=== PATIENT | female | born 1940 | race Caucasian/White ===

== ENCOUNTER 2017-02-20 15:27 | Outpatient (CLI) | payer MEDICARE, OTHER ==
--- NOTE | 2017-02-20 17:49 | Ultrasound Report ---
EXAM: CAROTID DOPPLER ULTRASOUND EXAM DATE: 02/20/2017 04:31 PM. CLINICAL HISTORY: Carotid artery stenosis. COMPARISON: Report dated 05/02/2015. TECHNIQUE: Real-time sonographic vascular imaging was performed by the ski maker wood through the caroti d arterial system with a linear transducer utilizing color-flow, Doppler flow and spectral analysis. Multiple fundraising sale representative static images were saved for review. FINDINGS: Mild heterogeneous plaque formation on the right. Marked heterogeneous plaque formation at the origin of the left ICA with near occlusion of the proximal left ICA. Right: RCCA Prox: PSV 87 cm/sec. RCCA Dist: PSV 81 cm/sec, EDV 20 cm/sec. RECA: PSV 77 cm/sec. R Bulb: PSV 69 cm/sec, EDV 20 cm/sec, ICA/CCA ratio 0.85, degree of stenosis <50%, plaque estimate <5 0%. DOUGLAS Prox: PSV 68 cm/sec, EDV 19 cm/sec, ICA/CCA ratio 0.84, degree of stenosis <50%, plaque estimate <50%. DOUGLAS Mid: PSV 77 cm/sec, EDV 22 cm/sec, ICA/CCA ratio 0.95, degree of stenosis <50%, plaque estimate <50%. DOUGLAS Dist: PSV 107 cm/sec, EDV 35 cm/sec, ICA/CCA ratio 1.32, degree of stenosis <50%, plaque estimat e <50%. RVA: PSV 56 cm/sec. RVA flow direction: Antegrade. Left: LCCA Prox: PSV 98 cm/sec. LCCA Dist: PSV 60 cm/sec, EDV 15 cm/sec. LECA: PSV 82 cm/sec. L Bulb: PSV 51 cm/sec, EDV 10 cm/sec, ICA/CCA ratio 0.85, degree of stenosis <50%, plaque estimate <5 0%. LICA Prox: PSV 457 cm/sec, EDV 197 cm/sec, ICA/CCA ratio 7.62, near occlusion. LICA Mid: PSV 76 cm/sec, EDV 22 cm/sec, ICA/CCA ratio 1.27, degree of stenosis <50%, plaque estimate <50%. LICA Dist: PSV 44 cm/sec, EDV 21 cm/sec, ICA/CCA ratio 0.73, degree of stenosis <50%, plaque estimate <50%. LVA: PSV 67 cm/sec. LVA flow direction: Antegrade. Other: None. 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 Validated velocity measurements with angiographic measurements and velocity criteria are extrapolated from diameter data as defined by the Society of Radiologists in Ultrasound Consensus Conference Radi ology 2003; 229;340-346. RADIA The above critical findings were discussed with Dr. Adrian by Dr. Jalen Barrera at 17:36 hrs on 01/25. Referring Provider Line: [phone] SITE ID: [id number]
== END 2017-02-20 15:28 | disposition home or self-care (01) ==
LOC: DI 15:27
PROVIDERS: ATTEND Physician Assistant Medical
DX: I65.22 Occlusion and stenosis of left carotid artery (principal)
CPT/HCPCS: 93880

== ENCOUNTER 2017-07-10 11:35 | Outpatient (CLI) | payer MEDICARE, OTHER ==
[2017-07-10 19:25] LABS: THYROID STIMULATING HORMONE 1.53 uIU/mL (0.34-5.60)
== END 2017-07-10 11:36 | disposition home or self-care (01) ==
LOC: LAB.WCP 11:35
PROVIDERS: ATTEND Physician Assistant Medical
DX: R63.5 Abnormal weight gain (principal)
CPT/HCPCS: 36415; 84439; 84443; 84481

== ENCOUNTER 2017-07-16 07:55 | Outpatient (CLI) | payer MEDICARE, OTHER ==
--- NOTE | 2017-07-17 18:03 | Mammography Report ---
DATE OF SERVICE: 07/16/2017 EXAM: DIGITAL BILATERAL SCREENING MAMMOGRAM CLINICAL INDICATION: A 76-year-old, for screening. COMPARISON: 06/2016, 04/2015, 03/2014, 01/2013, 08/2011, 06/2010. TECHNIQUE: Routine CC and MLO projections were obtained of the breasts. FINDINGS: The breasts demonstrate scattered fibroglandular densities bilaterally. Intramammary lymp h node in the left upper outer quadrant is stable. No suspicious masses, clustered microcalcifications, or regions of architectural distortion are identified. IMPRESSION: BENIGN FINDINGS. RECOMMENDATIONS: Routine annual screening unless otherwise clinically indicated. BIRADS CATEGORY 2-BENIGN FINDINGS. STANDARD QUALIFYING STATEMENTS 1. This examination was reviewed with the aid of Computer-Aided Detection (CAD). 2. A negative or benign imaging report should not delay biopsy if clinically suspicious findings are present. Consider surgical consultation if warranted. More than 5% of cancers are not identified by imaging. 3. Dense breasts may obscure an underlying neoplasm. TD: 07/17/2017 16:28
== END 2017-07-16 07:56 | disposition home or self-care (01) ==
LOC: DI 07:55
PROVIDERS: ATTEND Physician Assistant Medical
DX: Z12.31 Encounter for screening mammogram for malignant neoplasm of breast (principal)
CPT/HCPCS: 77067

== ENCOUNTER 2017-07-16 07:56 | Outpatient (CLI) | payer MEDICARE, OTHER ==
--- NOTE | 2017-07-17 13:16 | Ultrasound Report ---
DATE OF SERVICE: 07/16/2017 ABDOMINAL ULTRASOUND: 07/16/2017 CLINICAL INDICATION: Epigastric pain. The liver measures 12 cm. Hepatic echogenicity is normal. No intrahepatic biliary dilatation or foc al parenchymal lesion is present. The common bile duct measures 5 mm. The gallbladder is surgically absent. The v isualized pancreas is normal. The kidneys are normal, with the right measuring 9.3 cm and the left measuring 9 .0 cm. The spleen measures 9.0 cm, and demonstrates normal echotexture. The abdominal aorta is normal in calibe r. The inferior vena cava is unremarkable. No free fluid is present. IMPRESSION: Changes of cholecystectomy. Otherwise, normal abdominal ultrasound. TD: 07/16/2017 18:04
--- NOTE | 2017-07-18 14:16 | DEXA Report ---
DEXA SCAN: 07/16/2017 CLINICAL INDICATION: Postmenopausal. TECHNIQUE: Dual energy x-ray absorptiometry (DXA) was performed on a [employer] system. Regions measured are the AP spine, femoral neck, and, if needed, forearm. COMPARISON: None. In accordance with the International Society for Clinical Densitometry (ISCD) guidelines, data from previous exams may be reanalyzed using current recommendations and techniques. This is done to allow a more accurate basis for comparison with the current study. FINDINGS Data for Lumbar Spine is as follows: REGION BMD (g/cm/cm) T-SCORE Z-SCORE L1 0.894 -2.0 -0.1 L2 1.130 -0.6 1.3 L3 1.289 0.7 2.6 L4 1.171 -0.2 1.7 TOTAL 1.127 -0.4 1.5 NOTE: All evaluable vertebrae are used for classification. Data for Hip is as follows: REGION BMD (g/cm/cm) T-SCORE Z-SCORE Neck 0.731 -2.2 -0.2 TOTAL 0.825 -1.4 0.4 NOTE: The femoral neck or total proximal femur, whichever is lowest, is used for classification. IMPRESSION THE WHO CLASSIFICATION BASED ON THE INTERNATIONAL REFERENCE STANDARD IS OSTEOPENIA. THE FRACTURE RISK IS INCREASED. RECOMMENDATION: Patients with diagnosis of osteoporosis or osteopenia should have regular bone mineral density assessment. For those eligible for Medicare, routine testing is allowed once every 2 years. Testing frequency can be increased for patients who have rapidly progressing disease or for those who are receiving medical therapy to restore bone mass. COMMENT: World Health Organization (WHO) definitions for osteoporosis and osteopenia: NORMAL BMD: T-score at 1.0 or higher, fracture risk is low. OSTEOPENIA BMD: T-score between 1.0 and -2.5, fracture risk is increased. OSTEOPOROSIS BMD: T-score at 2.5 or lower, fracture risk high. National Osteoporosis Foundation recommends: 1. Obtain adequate dietary calcium (at least 1200 mg per day) and vitamin D (400 -800 international units per day). 2. Participate, as appropriate, in regular weightbearing and muscle- strengthening exercise. 3. Avoid tobacco use and reduce alcohol and caffeine intake. 4. For more detailed information see the website at www.NOF.org. MTDD
== END 2017-07-16 07:57 | disposition home or self-care (01) ==
LOC: DI 07:56
PROVIDERS: ATTEND Physician Assistant Medical
DX: Z13.820 Encounter for screening for osteoporosis (principal); M85.89 Other specified disorders of bone density and structure, multiple sites; Z78.0 Asymptomatic menopausal state; R10.13 Epigastric pain; Z90.49 Acquired absence of other specified parts of digestive tract
CPT/HCPCS: 76700; 77080

== ENCOUNTER 2017-08-07 11:41 | Outpatient (CLI) | payer MEDICARE, OTHER ==
[2017-08-07 19:09] LABS: CALCIUM 9.6 mg/dL (8.5-10.3); CREATININE 0.8 mg/dL (0.4-1.0)
== END 2017-08-07 11:42 | disposition home or self-care (01) ==
LOC: LAB.WCP 11:41
PROVIDERS: ATTEND Physician Assistant Medical
DX: R51 Headache (principal)
CPT/HCPCS: 36415; 80048

== ENCOUNTER 2017-08-14 07:51 | Outpatient (CLI) | payer MEDICARE, OTHER ==
[~2017-08-14 07:51] MED LIST: GADOBUTROL 7.5 MMOL/7.5 ML VIAL ONE
[2017-08-14] MEDS ORDERED: GADOBUTROL 7.5 MMOL/7.5 ML VIAL IVP ONE ×2 (07:52→08:38)
--- NOTE | 2017-08-14 09:17 | MRI Report ---
EXAM: MRI BRAIN WITHOUT AND WITH CONTRAST EXAM DATE: 08/14/2017 08:51 AM. CLINICAL HISTORY: HEADACHE. Intermittent shooting head pain for 3 months. Symptoms have been present since left-sided carotid surgery. COMPARISON: None. TECHNIQUE: Multiplanar, multisequence T1-weighted and fluid-sensitive MR sequences of the brain were performed. Sequences optimized for routine evaluation. Other: None. IV Contrast: 6 cc Gadavist. FINDINGS: Brain Volume: Normal for age. Parenchyma: No acute hemorrhage, mass, or infarct. Bonds matter and white matter signal is unremarkabl e. No abnormal enhancement. Ventricles/Cisterns: No hydrocephalus. No abnormal extra-axial fluid collection or hemorrhage. Orbits: Symmetric and unremarkable. Note is made of bilateral lens removal. Sella Turcica: The pituitary gland, cavernous sinuses, suprasellar cistern and optic chiasm are unrem arkable. IAC: Symmetric and unremarkable. Vasculature: Normal signal flow void is seen in the major arterial structures at the skull base. The dural sinuses are patent and enhance normally. Sinuses: No acute sinus disease. Bones: No focal pathologic appearing marrow signal changes. Other: None. IMPRESSION: 1. Negative MRI of the brain without and with contrast. No acute abnormality. RADIA Referring Provider Line: [phone] SITE ID: [id number]
== END 2017-08-14 07:52 | disposition home or self-care (01) ==
LOC: DI 07:51
PROVIDERS: ATTEND Physician Assistant Medical
DX: R51 Headache (principal)
CPT/HCPCS: 70553; A9585

== ENCOUNTER 2018-04-01 09:10 | Outpatient (CLI) | payer MEDICARE, OTHER ==
[2018-04-01 12:38] LABS: BILIRUBIN,URINE NEGATIVE (NEGATIVE); GLUCOSE, URINE (UA) NEGATIVE (NEGATIVE); KETONES,URINE (UA) NEGATIVE (NEGATIVE); LEUKOCYTE ESTERASE, URINE NEGATIVE (NEGATIVE); NITRITE,URINE NEGATIVE (NEGATIVE); OCCULT BLOOD,URINE NEGATIVE (NEGATIVE); PH,URINE 6.5 PH (5.0-7.5); PROTEIN,URINE NEGATIVE (NEGATIVE); UROBILINOGEN,URINE 0.2 (NORMAL) E.U./dL (NORMAL)
[2018-04-01 12:47] LABS: CLARITY,URINE CLEAR (CLEAR)
[2018-04-01 12:58] LABS: BACTERIA,URINE Rare /HPF (None Seen); RBC,URINE 0-5 /HPF (0-5); SQUAMOUS EPITHELIAL CELL,UR NONE SEEN (<= Few)
== END 2018-04-01 09:11 ==
LOC: LAB.R 09:10
PROVIDERS: ATTEND Physician Assistant Medical
DX: R31.9 Hematuria, unspecified (principal)
CPT/HCPCS: 81001; 87086

== ENCOUNTER 2018-04-15 14:49 | Outpatient (CLI) | payer MEDICARE, OTHER ==
--- NOTE | 2018-04-16 18:26 | Ultrasound Report ---
Reason: MENORRHAGIA,POSTMENOPAUSE Procedure Date: 04/15/2018 Accession Number: [id number] / [id number] Procedure: US - Pelvic w/Transvaginal CPT Code: FULL RESULT: EXAM: PELVIC ULTRASOUND EXAM DATE: 04/15/2018 04:00 PM. CLINICAL HISTORY: Menorrhagia, postmenopause. COMPARISON: PELVIC W/TRANSVAGINAL 11/27/2015 2:56 PM. TECHNIQUE: Realtime transabdominal pelvic scan performed to identify the uterus and adnexa and as an overview of other pelvic structures, followed by transvaginal scan to provide greater detail of the uterus and adnexa, with static image documentation. FINDINGS: Uterus: 4.5 x 3.2 x 1.8 cm, volume 13.5 cc. Anteverted position. Normal overall size and echotexture. Masses: None. Endometrium: 2.4 mm. No endometrial mass or polyp.Endometrium is indistinct and heterogeneous. Cervix: Nabothian cysts are noted. The cervix appears prominent but no focal mass is noted on ultrasound. Right Ovary: Ovary not seen. No adnexal abnormality. Limitation secondary to bowel gas. Left Ovary: Ovary not seen. No adnexal abnormality. Limitation secondary to bowel gas. Free Fluid: None. Other: Study limited due to bowel gas and posterior position of the uterus within the pelvis. IMPRESSION: 1. No endometrial mass or polyp. 2. No uterine mass. 3. Prominent heterogeneous cervix. No definite mass seen on ultrasound. This would be amenable for direct visualization and cervical exam. RADIA
== END 2018-04-15 14:50 | disposition home or self-care (01) ==
LOC: DI 14:49
PROVIDERS: ATTEND Physician Assistant Medical
DX: N95.0 Postmenopausal bleeding (principal)
CPT/HCPCS: 76830; 76856

== ENCOUNTER 2018-06-18 15:41 | Outpatient (CLI) | payer MEDICARE, OTHER | END 2018-06-18 15:42 | disposition home or self-care (01) | LOC: LAB.R 15:41 | PROVIDERS: ATTEND Registered Nurse | DX: N93.9 Abnormal uterine and vaginal bleeding, unspecified (principal); R35.0 Frequency of micturition | CPT/HCPCS: 87070 ==

== ENCOUNTER 2018-06-18 15:59 | Outpatient (CLI) | payer MEDICARE, OTHER ==
[2018-06-18 16:59] LABS: BILIRUBIN,URINE NEGATIVE (NEGATIVE); GLUCOSE, URINE (UA) NEGATIVE (NEGATIVE); KETONES,URINE (UA) NEGATIVE (NEGATIVE); LEUKOCYTE ESTERASE, URINE TRACE (NEGATIVE); NITRITE,URINE NEGATIVE (NEGATIVE); OCCULT BLOOD,URINE TRACE-INTA (NEGATIVE); PROTEIN,URINE NEGATIVE (NEGATIVE); UROBILINOGEN,URINE 0.2 (NORMAL) E.U./dL (NORMAL)
[2018-06-18 17:14] LABS: ALBUMIN/GLOBULIN RATIO 1.2 (1.0-2.2); BILIRUBIN,TOTAL 0.6 mg/dL (0.2-1.0); CALCIUM 9.3 mg/dL (8.5-10.3); CREATININE 0.9 mg/dL (0.4-1.0); TOTAL PROTEIN 7.3 g/dL (6.7-8.2)
[2018-06-18 17:41] LABS: CLARITY,URINE CLEAR (CLEAR)
[2018-06-18 17:43] LABS: BACTERIA,URINE Rare /HPF (None Seen); CASTS, URINE 0-2 Hyaline Casts /LPF; RBC,URINE 0-5 /HPF (0-5); SQUAMOUS EPITHELIAL CELL,UR RARE Squamous (<= Few)
== END 2018-06-18 16:00 | disposition home or self-care (01) ==
LOC: LAB 15:59
PROVIDERS: ATTEND Registered Nurse
DX: N39.9 Disorder of urinary system, unspecified (principal); R31.9 Hematuria, unspecified; N93.9 Abnormal uterine and vaginal bleeding, unspecified; R35.0 Frequency of micturition
CPT/HCPCS: 36415; 80053; 81001; 81003; 87070; 87086; 87181

== ENCOUNTER 2018-06-26 08:00 | Outpatient (CLI) | payer MEDICARE, OTHER ==
[2018-06-26 10:38] LABS: CREATININE,URINE 72.1 mg/dL
== END 2018-06-26 23:59 | disposition home or self-care (01) ==
LOC: LAB.R 08:00
PROVIDERS: ATTEND Registered Nurse
DX: N39.9 Disorder of urinary system, unspecified (principal)
CPT/HCPCS: 82570; 84156

== ENCOUNTER 2018-08-19 08:43 | Outpatient (CLI) | payer MEDICARE, OTHER ==
--- NOTE | 2018-08-19 09:38 | Mammography Report ---
Reason: NIPPLE LESION Procedure Date: 08/19/2018 Accession Number: [id number] / [id number] Procedure: [facility] - Diagnostic Dig Bilat CPT Code: FULL RESULT: EXAM: Diagnostic Dig Bilat DATE: 08/19/2018 9:31 AM CLINICAL HISTORY: Diagnostic mammogram for intermittently itchy skin with cracking and weeping of the skin surface around the right breast nipple. TECHNIQUE: Bilateral CC and MLO views were obtained. COMPARISON: 07/16/2017 through 04/21/2014. FINDINGS: The breasts demonstrate diffuse fatty replacement bilaterally. There are typically benign vascular calcifications. A typically benign appearing intramammary left breast lymph node is stable. There is no skin thickening or distortion of the right area N nipple region as compared to the left. No suspicious masses calcifications or architectural distortions are identified. IMPRESSION: Benign findings RECOMMENDATION: Recommend referral to breast surgery for clinical evaluation and consideration of skin biopsy at the time of active skin disease. Recommend routine annual Screening mammography unless otherwise clinically indicated. BIRADS CATEGORY 2: Benign findings STANDARD QUALIFYING STATEMENTS: 1. This examination was not reviewed with the aid of Computer-Aided Detection (CAD). 2. A negative or benign imaging report should not delay biopsy if clinically suspicious findings are present. Consider surgical consultation if warrented. More than 5% of cancers are not identified by imaging. 3. Dense breasts may obscure an underlying neoplasm. 4. This examination was reviewed with the aid of 3D imaging (tomography).
== END 2018-08-19 08:44 | disposition home or self-care (01) ==
LOC: DI 08:43
PROVIDERS: ATTEND Registered Nurse
DX: N64.59 Other signs and symptoms in breast (principal)
CPT/HCPCS: 77066

== ENCOUNTER 2019-02-16 | Outpatient (CLI) | payer MEDICARE, OTHER | END 2019-02-16 23:59 | disposition home or self-care (01) | DX: N39.0 Urinary tract infection, site not specified (principal) | CPT/HCPCS: 87086; 87181 ==

== ENCOUNTER 2019-03-31 08:00 | Outpatient (CLI) | payer MEDICARE, OTHER ==
--- NOTE | 2019-04-01 08:44 | XRAY Report ---
Reason: OSTEOARTHRITIS Procedure Date: 03/31/2019 Accession Number: [id number] / [id number] Procedure: WCP - Hip BILAT CPT Code: FULL RESULT: EXAM: BILATERAL HIP RADIOGRAPHY EXAM DATE: 03/31/2019 09:15 AM. CLINICAL HISTORY: Osteoarthritis. COMPARISON: HIP 2 VIEW RT 01/07/2017 9:27 AM. TECHNIQUE: 2 views each. FINDINGS: Right hip: Previous right hip bipolar arthroplasty. No dislocation. Intact cerclage wire around the remnant trochanter. Longitudinal lucencies of the right remnant trochanter and proximal diaphysis along the proximal aspect of the intramedullary femoral prosthesis and deep to the cerclage wire, similar to comparison. This would suggest a chronic incomplete bony union. No evidence of intramedullary beny loosening. A triangular shaped corticated density lateral to the prostatic acetabular cup appears stable. Left Hip: No fracture or dislocation detected. Mild narrowing of the hip joint space and mild osteophytic spurring of the acetabulum. Soft Tissues: Normal. No soft tissue swelling. 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 Mild degenerative changes at the left hip. RADIA
--- NOTE | 2019-04-01 08:47 | XRAY Report ---
Reason: LEFT RIB PAIN Procedure Date: 03/31/2019 Accession Number: [id number] / [id number] Procedure: WCP - Ribs 2 View LT CPT Code: FULL RESULT: EXAM: LEFT RIB RADIOGRAPHY EXAM DATE: 03/31/2019 09:15 AM. CLINICAL HISTORY: Left rib pain. COMPARISON: CHEST 2 VIEW PA/LAT 02/03/2018 2:36 PM. TECHNIQUE: 2 views. FINDINGS: Bones: Normal. No fracture or bone lesion. Lungs: No focal opacities evident. No pneumothorax or pleural effusions. Mediastinum: Heart and cardiomediastinal contours are unremarkable. Other: None. IMPRESSION: No left-sided rib fractures or discrete lesions detected. RADIA
== END 2019-03-31 23:59 | disposition home or self-care (01) ==
LOC: DI.WCP 08:00 → EDSTATUS 13:29 → DI.WCP 23:59
PROVIDERS: ATTEND Family Medicine
DX: R07.81 Pleurodynia (principal); M16.12 Unilateral primary osteoarthritis, left hip; Z96.641 Presence of right artificial hip joint
CPT/HCPCS: 73521

== ENCOUNTER 2019-04-08 07:41 | Outpatient (CLI) | payer MEDICARE, OTHER | END 2019-04-08 07:42 | disposition home or self-care (01) | LOC: DI 07:41 | PROVIDERS: ATTEND Physician Assistant Medical | DX: R01.1 Cardiac murmur, unspecified (principal) | CPT/HCPCS: 93306 ==

== ENCOUNTER 2019-07-22 08:07 | Outpatient (CLI) | payer MEDICARE, OTHER ==
--- NOTE | 2019-07-25 08:41 | DEXA Report ---
Reason: MENOPAUSAL STATE Procedure Date: 07/22/2019 Accession Number: [id number] / [id number] Procedure: DEX - Dexa Spine and/or Hip CPT Code: Final Report FULL RESULT: EXAM: Dexa Spine and/or Hip, Dexa Forearm DATE: 07/22/2019 9:14 AM CLINICAL HISTORY: MENOPAUSAL STATE TECHNIQUE: Dual energy x-ray absorptiometry (DXA) was performed on a [employer]. Regions measured are the AP Spine, femoral neck, and if needed forearm. COMPARISON: 07/16/2017. In accordance with the International Society for Clinical Densitometry (ISCD) guidelines, data from previous exams may be reanalyzed using current recommendations and techniques. This is done to allow a more accurate basis for comparison with the current study. FINDINGS: The data for the lumbar spine is as follows: BMD (g/cm/cm) T-SCORE Z-SCORE REGION L1 L2 0.969 -1.9 -0.1 L3 1.264 0.5 2.4 L4 1.444 2.0 3.9 TOTAL 1.241 0.3 2.2 NOTE: All evaluable vertebrae are used for classification The data for the hip is as follows: BMD (g/cm/cm) T-SCORE Z-SCORE REGION Neck 0.728 -2.2 -0.1 TOTAL 0.815 -1.5 0.4 NOTE: The femoral neck or total proximal femur, whichever is lowest, is used for classification. The data for the left forearm is as follows: BMD (g/cm/cm) T-SCORE Z-SCORE REGION 1/3 0.732 -1.6 0.8 NOTE: The 33% radius of the nondominant forearm is used for classification. DXA RESULTS SUMMARY: Spine SCAN DATE AGE BMD CHANGE VS CHANGE VS PREVIOUS PREVIOUS % 07[age]22/2019 [age] 1.241 0.046* 3.8* 07/16/2017 [age] 1[age]195 * Denotes significant change at the 95% confidence level. Denotes dissimilar scan types or analysis methods. DXA RESULTS SUMMARY: Hip SCAN DATE [age]GE BMD CHANGE VS CHANGE VS PREVIOUS PREVIOUS % 07[age]22/2019 78.6 0.815 -0.010 -1.2 07[age]16/2017 [age] 0.825 * Denotes significant change at the 95% confidence level. Denotes dissimilar scan types or analysis methods. IMPRESSION: THE WHO CLASSIFICATION BASED ON THE INTERNATIONAL REFERENCE STANDARD IS OSTEOPENIA. THE FRACTURE RISK IS INCREASED. Please note that the apparent density in the lumbar spine on today's examination is felt to be artifactual due to degenerative changes. RECOMMENDATION: Patients with diagnosis of osteoporosis or osteopenia should have regular bone mineral density assessment. For those eligible for Medicare, routine testing is allowed once every 2 years. Testing frequency can be increased for patients who have rapidly progressing disease or for those who are receiving medical therapy to restore bone mass. COMMENT: World Health Organization (WHO) definitions for osteoporosis and osteopenia: NORMAL BMD: T-score at -1.0 or higher, fracture risk is low OSTEOPENIA BMD: T-score between -1.0 and -2.5, fracture risk is increased. OSTEOPOROSIS BMD: T-score at -2.5 or lower, fracture risk is high. National Osteoporosis Foundation recommends: 1. Obtain adequate dietary calcium (at least 1200 mg per day) and vitamin D (400-800 international units per day). 2. Participate, as appropriate, in regular weightbearing and muscle-strengthening exercise. 3. Avoid tobacco use and reduce alcohol and caffeine intake. 4. For more detailed information see the website at www.NOF.org.
== END 2019-07-22 08:08 | disposition home or self-care (01) ==
LOC: DI 08:07
PROVIDERS: ATTEND Physician Assistant Medical
DX: M85.89 Other specified disorders of bone density and structure, multiple sites (principal)
CPT/HCPCS: 77080; 77081

== ENCOUNTER 2019-08-20 12:52 | Outpatient (CLI) | payer MEDICARE, OTHER ==
--- NOTE | 2019-08-20 14:08 | Ultrasound Report ---
Reason: LEG PAIN LT Procedure Date: 08/20/2019 Accession Number: [id number] / [id number] Procedure: US - Ext Limited Non Vascular CPT Code: Final Report FULL RESULT: EXAM: LEFT LOWER EXTREMITY ULTRASOUND - LIMITED EXAM DATE: 08/20/2019 01:25 PM. CLINICAL HISTORY: LEG PAIN LT. COMPARISON: None. TECHNIQUE: Real-time scanning was performed with static images obtained. FINDINGS IMPRESSION: Limited ultrasound images of the area of clinical concern, left lateral lower leg, show no sonographic abnormality. The call report notification system was initiated by Dr. Karsten Hickman at 02:08 PM on 08/20/2019.
== END 2019-08-20 12:53 | disposition home or self-care (01) ==
LOC: DI 12:52
PROVIDERS: ATTEND Family Medicine
DX: M79.605 Pain in left leg (principal)
CPT/HCPCS: 76882

== ENCOUNTER 2020-09-26 13:03 | Outpatient (CLI) | payer MEDICARE, OTHER ==
--- NOTE | 2020-09-27 07:50 | Mammography Report ---
BILATERAL DIGITAL SCREENING MAMMOGRAM 3D/2D: 09/26/2020 CLINICAL: Routine screening. Comparison is made to exams dated: 08/19/2018 mammogram, 07/16/2017 mammogram, and 07/16/2016 mammogr am - [facility]. There are scattered fibroglandular elements in both breasts. No significant masses, calcifications, or other findings are seen in either breast. There has been no significant interval change. IMPRESSION: NEGATIVE There is no mammographic evidence of malignancy. A 1 year screening mammogram is recommended. This exam was interpreted at Station ID: [id number]. NOTE: For mammograms, a report in lay terms will be sent to the patient. Approximately 15% of breast malignancies will not be visualized mammographically. In the management of a palpable breast mass, a negative mammogram must not discourage biopsy of a clinically suspicious lesion. Electronically Signed By: Karsten Kemp M.D. ar/penrad:09/26/2020 16:31:15 ACR BI-RADS Category 1: Negative 3341F PARENCHYMAL PATTERN: (A) - The breast(s) demonstrate(s) scattered fibroglandular densities. BI-RADS CATEGORY: (1) - 1 RECOMMENDATION: (ANNUAL) - Recommend routine annual screening mammography. [id number] 1 year screening LATERALITY: (B)
== END 2020-09-26 13:04 | disposition home or self-care (01) ==
LOC: DI 13:03
DX: Z12.31 Encounter for screening mammogram for malignant neoplasm of breast (principal)

== ENCOUNTER 2021-05-14 10:31 | Outpatient (CLI) | payer MEDICARE, OTHER ==
--- NOTE | 2021-05-14 11:43 | XRAY Report ---
PROCEDURE: Shoulder 3 View LT INDICATIONS: SHOULDER IMPINGEMENT TECHNIQUE: 3 views of the shoulder were acquired. COMPARISON: None. FINDINGS: BONES: No acute, displaced fracture or dislocation. Moderate arthrosis of the AC joint with joint spa ce narrowing and osteophytosis. SOFT TISSUES: Punctate calcific densities overlying the humeral head, compatible with calcific tendin opathy. IMPRESSION: 1.No acute osseous abnormality. 2.Rotated cuff calcific tendinopathy. Reviewed by: Jeremiah Mcmanus MD on 05/14/2021 11:42 AM PDT Approved by: Jeremiah Mcmanus MD on 05/14/2021 11:42 AM PDT Station ID: [id number]
--- NOTE | 2021-05-14 11:52 | XRAY Report ---
PROCEDURE: Lumbar Spine 2 View INDICATIONS: Chronic back pain. TECHNIQUE: 2 views of the lumbar spine were acquired. COMPARISON: May 14, 2016. FINDINGS: L-SPINE: 5 nonrib-bearing vertebrae. No acute displaced fracture or traumatic subluxation. Minimal gr sandy 1 anterolisthesis at L4-5. Minimal retrolisthesis at L2-3 The vertebral body heights are maintain ed. Mild to moderate disc height loss, most prominent at L3-4 with sclerosis of the opposing endplat es. The sacroiliac joints appear patent. Facet arthrosis, most prominent at L3-S1. SOFT TISSUES: No focal abnormality. IMPRESSION: 1.Degenerative changes of lumbar spine as detailed above. Reviewed by: Jeremiah Mcmanus MD on 05/14/2021 11:51 AM PDT Approved by: Jeremiah Mcmanus MD on 05/14/2021 11:51 AM PDT Station ID: [id number]
== END 2021-05-14 10:32 | disposition home or self-care (01) ==
LOC: DI 10:31
PROVIDERS: ATTEND Physician Assistant Medical
DX: M47.816 Spondylosis without myelopathy or radiculopathy, lumbar region (principal); M47.817 Spondylosis without myelopathy or radiculopathy, lumbosacral region; M65.812 Other synovitis and tenosynovitis, left shoulder

== ENCOUNTER 2021-07-24 16:15 | Outpatient (CLI) | payer MEDICARE, OTHER | END 2021-07-24 23:59 | disposition home or self-care (01) | LOC: LAB 16:15 | PROVIDERS: ATTEND Physician Assistant Medical | DX: N39.0 Urinary tract infection, site not specified (principal) | CPT/HCPCS: 87086 ==